=== PATIENT | male | born 2000 | race Caucasian/White ===

== ENCOUNTER 2021-08-02 07:40 | Inpatient (IN) | payer OTHER ==
[2021-08-02] MEDS ORDERED: CEFAZOLIN 1 GM VIAL ONE (08:29)
[2021-08-02] MEDS ORDERED: Morphine 4 MG/ML VIAL ONE ×2 (08:29→11:33)
[2021-08-02] MEDS ORDERED: Ondansetron PF 4 MG/2 ML Vial ONE ×2 (08:29→11:33)
[2021-08-02 08:38] LABS: ALT (SGPT) 34 U/L (8-55); AST (SGOT) 52 U/L (5-34); Albumin 4.2 g/dL (3.5-5.0); Alkaline Phosphatase 63 U/L (40-110); Anion Gap 12 mmol/L (10-20); BUN (Urea Nitrogen) 11 mg/dL (8.9-20.6); Bilirubin, Total 0.7 mg/dL (0.2-1.2); CK (CPK) 641 U/L (30-200); Calc. Creatinine Clearance 0 mL/min (70-130); Calcium 9.1 mg/dL (7.8-10.44); Carbon Dioxide 25 mmol/L (22-29); Chloride 102 mmol/L (98-107); Globulin 2.6 g/dL (2.4-3.5); Glucose 166 mg/dL (70-105); Potassium 3.4 mmol/L (3.5-5.1); Protein, Total 6.8 g/dL (6.0-8.3); Sodium 136 mmol/L (136-145)
[2021-08-02 08:42] LABS: #Basophils 0.1 thou/uL (0.0-0.2); #Eosinphils 0.4 thou/uL (0.0-0.7); #Lymphocytes 3.1 thou/uL (1.20-3.40); #Monocytes 0.6 thou/uL (0.11-0.59); #Neutrophils 5.1 thou/uL (1.40-6.50); %Basophils 0.6 % (0.0-1.0); %Eosinophils 4.1 % (0.0-10.0); %Lymphocytes 33.4 % (21.0-51.0); %Monocytes 6.8 % (0.0-10.0); %Neutrophils 55.1 % (42.0-75.0); Hemoglobin 14.8 g/dL (14.0-18.0); Mean Corpuscular Hemoglobin 30.3 pg (27.0-31.0); Mean Platelet Volume 7.7 fL (7.4-10.4); Platelet Count 214 thou/uL (130-400); RBC Distribution Width 11.4 % (11.5-14.5); White Blood Cell (WBC) Count 9.3 thou/uL (4.8-10.8)
[2021-08-02] MEDS ORDERED: Boostrix 0.5 ML (Tdap) VIAL ONE (08:59)
[2021-08-02] MEDS ORDERED: Ondansetron PF 4 MG/2 ML Vial IVP PRN (11:50)
[2021-08-02] MEDS ORDERED: Morphine 2 MG/ML VIAL SLOW IVP PRN (11:50)
[2021-08-02] MEDS ORDERED: Acetaminophen W/ Codeine 5 ML UDCUP PO PRN (11:53)
[2021-08-02] MEDS ORDERED: Acetaminophen 325 MG/10.15 ML UDCUP PO SCH (12:00)
[2021-08-02 12:26] VITALS: BMI 21.2
[2021-08-02] MEDS ORDERED: Morphine 4 MG/ML VIAL SLOW IVP PRN (12:45)
[2021-08-02] MEDS ORDERED: Iopamidol-370 76% 500 ML 1 ML ONE (12:47)
[2021-08-02] MEDS ORDERED: FLU VACC QS2021-22(6MOS UP)/PF 60 MCG/0.5 ML SYRINGE IM ONE (13:00)
[2021-08-02] MEDS: Acetaminophen 650 MG/20.3 ML UDCUP PO SCH ×3 (13:02→23:56)
[2021-08-02] MEDS ORDERED: CEFAZOLIN 1 GM VIAL SLOW IVP SCH (14:00)
[2021-08-02] MEDS ORDERED: ceFAZolin Sodium/D5W 2 GM in Premix Bag 1 BAG IVPB SCH (16:00)
[2021-08-02] MEDS: CEFAZOLIN 2 GM, Admixture Fee 1 EACH in Sodium Chloride 0.9% 100 ML IVPB SCH ×2 (16:04→23:56)
[2021-08-02 17:13] LABS: SARS-CoV-2 PCR by NAA Not Detected (NotDetected)
[2021-08-02] MEDS ORDERED: Dexamethasone 20 MG/5 ML VIAL SLOW IVP SCH (19:00)
[2021-08-02] MEDS: Dexamethasone 10 MG/ML VIAL SLOW IVP SCH (20:19)
[2021-08-02] MEDS: Famotidine/PF 20 mg/2ml Vial SLOW IVP SCH (20:19)
[2021-08-02] MEDS: Chlorhexidine Gluconate 15 ML UDCUP SSP SCH (20:30)
[2021-08-03] MEDS: Dexamethasone 10 MG/ML VIAL SLOW IVP SCH ×2 (04:39→15:27)
[2021-08-03] MEDS: Acetaminophen 650 MG/20.3 ML UDCUP PO SCH ×4 (05:33→23:37)
[2021-08-03] MEDS: CEFAZOLIN 2 GM, Admixture Fee 1 EACH in Sodium Chloride 0.9% 100 ML IVPB SCH ×3 (08:40→23:37)
[2021-08-03] MEDS: Chlorhexidine Gluconate 15 ML UDCUP SSP SCH ×2 (08:41→20:52)
[2021-08-03] MEDS: Famotidine/PF 20 mg/2ml Vial SLOW IVP SCH ×2 (08:41→20:51)
[2021-08-03] MEDS ORDERED: Fentanyl 100 MCG/2 ML VIAL ONE ×2 (11:29→15:52)
[2021-08-03] MEDS ORDERED: AFRIN NASAL MIST 15 ML BOT ONE (11:36)
[2021-08-03] MEDS ORDERED: Chlorhexidine Gluconate 15 ML UDCUP SSP ONE (11:46)
[2021-08-03] MEDS ORDERED: Lidocaine 1% w/Epinephrine 1:100K 20 ML VIAL ONE (11:46)
[2021-08-03] MEDS ORDERED: SUGAMMADEX SODIUM 200 MG/2 ML VIAL ONE (12:12)
[2021-08-03] MEDS ORDERED: Midazolam HCl 2 mg/2 ml Vial ONE (12:49)
[2021-08-03] MEDS ORDERED: Rocuronium Bromide 10 MG/ML (10ML VIAL) ONE (12:55)
[2021-08-03] MEDS ORDERED: Ondansetron PF 4 MG/2 ML Vial ONE (12:55)
[2021-08-03] MEDS ORDERED: Succinylcholine 200 MG/10 ml SYRINGE FS ONE (12:55)
[2021-08-03] MEDS ORDERED: Ketorolac Tromethamine 30 MG/ML VIAL ONE (12:55)
[2021-08-03] MEDS ORDERED: PROPOFOL 200 MG/20 ML VIAL ONE (12:55)
[2021-08-03] MEDS ORDERED: Dexamethasone 20 MG/5 ML VIAL ONE (12:55)
[2021-08-03] MEDS ORDERED: PHENYLEPHRINE-NS 100 MCG/ML 10 ML SYRINGE ONE (12:55)
[2021-08-03] MEDS ORDERED: Lidocaine 1% PF 5 ML VIAL ONE (12:55)
[2021-08-03] MEDS ORDERED: Dexmedetomidine 200 MCG/2 ML VIAL ONE (13:26)
[2021-08-03] MEDS ORDERED: Bacitracin Zinc Ointment 30 gm TUBE ONE (15:10)
[2021-08-03] MEDS ORDERED: Promethazine HCl 25 MG/ML VIAL IVPB PRN (16:14)
[2021-08-03] MEDS ORDERED: Meperidine HCl/PF 25 MG/ML VIAL SLOW IVP PRN (16:14)
[2021-08-03] MEDS ORDERED: Promethazine HCl 25 MG/ML VIAL IM PRN (16:14)
[2021-08-03] MEDS ORDERED: HYDROmorphone 2 MG/ML VIAL SLOW IVP PRN (16:14)
[2021-08-03] MEDS ORDERED: Ondansetron HCl/PF 4 MG/2 ML Vial IVP PRN (16:14)
[2021-08-03] MEDS: Clindamycin/D5W 900 MG in Premix Bag 1 BAG IVPB SCH (20:52)
[2021-08-04] MEDS: Acetaminophen 650 MG/20.3 ML UDCUP PO SCH ×2 (05:52→11:52)
[2021-08-04] MEDS: Chlorhexidine Gluconate 15 ML UDCUP SSP SCH (05:52)
[2021-08-04] MEDS: Clindamycin/D5W 900 MG in Premix Bag 1 BAG IVPB SCH (05:53)
[2021-08-04] MEDS: CEFAZOLIN 2 GM, Admixture Fee 1 EACH in Sodium Chloride 0.9% 100 ML IVPB SCH (08:45)
[2021-08-04] MEDS: Famotidine/PF 20 mg/2ml Vial SLOW IVP SCH (08:45)
[2021-08-04 13:31] VITALS: BP 120/79; TEMP 98.2
== END 2021-08-04 13:00 | disposition home or self-care (01) | DRG 141 ==
LOC: ERS 07:40 → SURG A 09:04
PROVIDERS: ADMIT Surgery; ATTEND Surgery
PROC: 0NSV04Z Reposition Left Mandible with Internal Fixation Device, Open Approach (ICD-10-PCS; principal; 2021-08-03)
PROC: 0NST04Z Reposition Right Mandible with Internal Fixation Device, Open Approach (ICD-10-PCS; 2021-08-03)
PROC: 0NHR04Z Insertion of Internal Fixation Device into Maxilla, Open Approach (ICD-10-PCS; 2021-08-03)
PROC: 0CDXXZ0 Extraction of Lower Tooth, Single, External Approach (ICD-10-PCS; 2021-08-03)
DX: S02.652A Fracture of angle of left mandible, initial encounter for closed fracture (principal); S12.400A Unspecified displaced fracture of fifth cervical vertebra, initial encounter for closed fracture; S36.030A Superficial (capsular) laceration of spleen, initial encounter; S02.66XA Fracture of symphysis of mandible, initial encounter for closed fracture; Z20.822 Contact with and (suspected) exposure to COVID-19; V44.9XXA Unspecified car occupant injured in collision with heavy transport vehicle or bus in traffic accident, initial encounter; Y92.410 Unspecified street and highway as the place of occurrence of the external cause
CPT/HCPCS: 36415; 70450; 70486; 71260; 72125; 74177; 76377; 80053; 82550; 85025; 86850; 86900; 86901; 90471; 90715; 96365; 96375; 96376; C1713; C1788; G0390; J0690; J1100; J1885; J2250; J2270; J2405; J2704; J3010; J3490; Q9967; S0028; U0003; U0005

== ENCOUNTER 2021-08-23 15:08 | Outpatient (CLI) | payer BC | END 2021-08-23 15:09 | disposition home or self-care (01) | LOC: BICRAD 15:08 | PROVIDERS: ATTEND Neurological Surgery | DX: S12.9XXD Fracture of neck, unspecified, subsequent encounter (principal); M43.12 Spondylolisthesis, cervical region | CPT/HCPCS: 72040 ==

== ENCOUNTER 2021-10-03 14:27 | Outpatient (CLI) | payer BC | END 2021-10-03 14:28 | disposition home or self-care (01) | LOC: TBSIIMAG 14:27 | PROVIDERS: ATTEND Neurological Surgery | DX: S12.400D Unspecified displaced fracture of fifth cervical vertebra, subsequent encounter for fracture with routine healing (principal); M43.12 Spondylolisthesis, cervical region; M48.8X2 Other specified spondylopathies, cervical region; Z98.890 Other specified postprocedural states | CPT/HCPCS: 72040 ==